=== PATIENT | female | born 1985 | race Caucasian/White ===

== ENCOUNTER 2017-06-01 22:23 | Emergency (ER) | payer SELFPAY ==
[~2017-06-01] VITALS: Ht 162.6 cm; Wt 72.7 kg
[2017-06-01] MEDS ORDERED: ESCI10TA PO (22:41)
[2017-06-02 01:19] LABS: APPEARANCE,URINE CLOUDY (CLEAR); GLUCOSE, URINE (UA) NEGATIVE (NEGATIVE); KETONES,URINE NEGATIVE (NEGATIVE); LEUKOCYTE ESTERASE ,URINE NEGATIVE (NEGATIVE); OCCULT BLOOD,URINE LARGE (NEGATIVE); PH,URINE 6.5 (5.0-8.0); PROTEIN,URINE NEGATIVE (NEGATIVE)
[2017-06-02 01:20] LABS: ADD UA MICROSCOPIC YES
[2017-06-02 01:35] LABS: WBC,URINE 0-2 /HPF (0-5)
[2017-06-02 02:33] VITALS: BP 118/69
== END 2017-06-02 02:36 | disposition home or self-care (01) ==
LOC: EMS 22:25
DX: T83.83XA Hemorrhage due to genitourinary prosthetic devices, implants and grafts, initial encounter (principal); F41.9 Anxiety disorder, unspecified; F17.210 Nicotine dependence, cigarettes, uncomplicated; Z88.2 Allergy status to sulfonamides; Y83.9 Surgical procedure, unspecified as the cause of abnormal reaction of the patient, or of later complication, without mention of misadventure at the time of the procedure; Y92.89 Other specified places as the place of occurrence of the external cause
CPT/HCPCS: 76830; 76856; 99285; 99406